=== PATIENT | female | born 1935 | race Caucasian/White ===

== ENCOUNTER → 2017-06-15 | Outpatient (CLI) | payer MEDICARE, OTHER ==
--- NOTE | 2017-06-15 13:24 | RADIOLOGY REPORT (SQ) ---
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 TECHNIQUE: Sagittal and Axial imaging includes T1, T2, STIR and gradient echo sequences. Coronal T2/ HASTE imaging. LIMITATIONS: None. FINDINGS: VISUALIZED UPPER ABDOMEN: Limited evaluation. No acute or suspicious findings suggested. SEGMENTATION: No transitional anatomy. The lowest well-developed disc space is labeled L5-S1. ALIGNMENT: 25% anterolisthesis of L4 over L5, related to spondylolysis. VERTEBRAE: Intact. BONE MARROW: Hemangioma in the T12 and L1 vertebral bodies. DISC SIGNAL: Diffuse decreased T2 weighted intervertebral disc signal. Multilevel disc space loss of height. POSTERIOR ELEMENTS: Bilateral spondylolysis at L4 HARDWARE: None in the spine. CORD AND CONUS: Normal in size and signal intensity. Conus at the L1 level. SOFT TISSUES: No aortic aneurysm seen. No bulky retroperitoneal adenopathy or mass. No paraspinal mas s or fluid. T9-10: At the upper edge of the field of view. Broad diffuse disc bulge is present. Bilateral face t hypertrophy. No central stenosis. Foramina incompletely included in the field of view but there i s at least moderate left T9-10 foraminal stenosis. T10-11: At the upper edge of the field of view. Broad diffuse posterior disc bulge and bony spurrin g, bulky bilateral facet hypertrophy is present with borderline central canal, mild right, and modera te to high-grade left T10-11 foraminal narrowing. T11-12: Minimal posterior disc bulging is present. Bilateral facet hypertrophy left greater than ri ght. Mild right, moderate left foraminal narrowing. No central stenosis. T12-L1: Broad diffuse posterior disc bulging, mild bilateral facet and ligament hypertrophy. Border line central canal narrowing. No right foraminal narrowing. Mild left foraminal narrowing. L1-L2: Mild diffuse posterior disc bulging, moderate bilateral facet hypertrophy. Borderline central canal narrowing. Moderate bilateral foraminal narrowing. L2-L3: Mild diffuse posterior disc bulging, bulky bilateral facet hypertrophy. Mild central canal na rrowing. Mild bilateral inferior foraminal narrowing. L3-L4: Mild to moderate central canal stenosis with flattening of the thecal sac into a triangular sh ape results from broad diffuse posterior disc bulge and bony spurring and very bulky bilateral facet hypertrophy. This is best shown on axial T2 series 8, image 23. There is moderate bilateral foramin al narrowing. L4-L5: Severe central canal stenosis is present at L4-5, as a result of broad diffuse posterior disc bulging, 25% anterolisthesis of L4 over L5, and very bulky bilateral facet hypertrophy. There is com plete effacement of the CSF along the lumbar nerve roots best shown on axial T2 series 8, image 28 an d sagittal image 9. Moderate right, mild left foraminal narrowing is present. L5-S1: Broad diffuse posterior disc bulging is present with bulky bilateral facet and ligament hypert rophy. No central stenosis. Mild right and left foraminal narrowing. SACRUM: Visualized upper sacrum intact. OTHER: No other significant findings. IMPRESSION: Severe central canal stenosis at L4-5 TECHNICAL DOCUMENTATION: JOB ID: [id number] [employer] All Rights Reserved
== END ==
LOC: RAD 10:25
PROVIDERS: ATTEND Internal Medicine
DX: M47.816 Spondylosis without myelopathy or radiculopathy, lumbar region (principal); M54.5 Low back pain; M54.16 Radiculopathy, lumbar region
CPT/HCPCS: 72148

== ENCOUNTER → 2018-06-24 | Outpatient (CLI) | payer MEDICARE, OTHER ==
--- NOTE | 2018-06-24 14:32 | RADIOLOGY REPORT (SQ) ---
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 TECHNIQUE: CT scan of the chest performed using helical scanning technique with dynamic intravenous contrast injection. Images reviewed with lung, soft tissue and bone windows. Reconstructed coronal and sagittal MPR and MIP images reviewed. All images stored on PACS. All CT scanners at this facility use dose modulation, iterative reconstruction, and/or weight based d osing when appropriate to reduce radiation dose to as low as reasonably achievable (ALARA). [facility]: Dose Right [facility]: CareDose [facility]: Dose Right [facility]: Teradose 4D [facility]: KOEZY CONTRAST TYPE AND DOSE: contrast/concentration: Isovue 350.00 mg/ml; Total Contrast Delivered: 80.0 ml; Total Saline Delivered: 55.0 ml RENAL FUNCTION: Creatinine 0.6 RADIATION DOSE: CT Rad equipment meets quality standard of care and radiation dose reduction techniq ues were employed. CTDIvol: 8.3 mGy. DLP: 320 mGy-cm. . LIMITATIONS: None. FINDINGS: LUNGS AND PLEURA: No opacities, nodules, masses. No pneumothorax. No effusions. HILAR AND MEDIASTINAL STRUCTURES: Mediastinal adenopathy is present as follows: Prevascular 1.2 x 0.7 cm lymph node AP window 1.6 x 0.9 cm lymph node Right hilar 1.8 x 1.4 cm lymph node Precarinal 1.9 x 1.4 cm lymph node HEART AND VASCULAR STRUCTURES: No aneurysm or dissection. No central pulmonary emboli. No pericardi al effusion. HARDWARE: None in the chest. UPPER ABDOMEN: Small hiatal hernia. Otherwise unremarkable THYROID AND OTHER SOFT TISSUES: No masses. No adenopathy. BONES: No focal findings to explain history of anterior rib pain. No acute rib or sternal fracture i s identified. OTHER: No other significant finding. IMPRESSION: No CT findings to explain history of anterior chest wall pain. Mediastinal adenopathy as above TECHNICAL DOCUMENTATION: JOB ID: [id number] Quality ID # [id number]: Final reports with documentation of one or more dose reduction techniques (e.g., Au tomated exposure control, adjustment of the mA and/or kV according to patient size, use of iterative reconstruction technique) 2010 [employer]- All Rights Reserved Reading location - IP/workstation name: [email or web address]
== END ==
LOC: RAD 12:42
PROVIDERS: ATTEND Physician Assistant
DX: M94.0 Chondrocostal junction syndrome [Tietze] (principal); R07.82 Intercostal pain
CPT/HCPCS: 71260; 82565

== ENCOUNTER → 2018-10-15 | Outpatient (CLI) | payer MEDICARE, OTHER ==
--- NOTE | 2018-10-15 15:07 | RADIOLOGY REPORT (SQ) ---
EXAM DESCRIPTION: CT CHEST WITH COMPLETED DATE/TIME: 10/15/2018 2:40 pm REASON FOR STUDY: MEDIASTINAL ADENOPATHY R59.0 LOCALIZED ENLARGED LYMPH NODES COMPARISON: 06/24/2018 TECHNIQUE: CT scan of the chest performed using helical scanning technique with dynamic intravenous contrast injection. Images reviewed with lung, soft tissue and bone windows. Reconstructed coronal and sagittal MPR and MIP images reviewed. All images stored on PACS. All CT scanners at this facility use dose modulation, iterative reconstruction, and/or weight based d osing when appropriate to reduce radiation dose to as low as reasonably achievable (ALARA). [facility]: Dose Right [facility]: CareDose [facility]: Dose Right [facility]: Teradose 4D [facility]: [employer] CONTRAST TYPE AND DOSE: contrast/concentration: Isovue 350.00 mg/ml; Total Contrast Delivered: 80.0 ml; Total Saline Delivered: 55.0 ml RENAL FUNCTION: Creatinine 0.8 RADIATION DOSE: CT Rad equipment meets quality standard of care and radiation dose reduction techniq ues were employed. CTDIvol: 11.4 mGy. DLP: 433 mGy-cm. . LIMITATIONS: None. FINDINGS: LUNGS AND PLEURA: No opacities, nodules, masses. No pneumothorax. No effusions. HILAR AND MEDIASTINAL STRUCTURES: Previously described lymph nodes have all decreased in size. All l ess than 1 cm in short axis. HEART AND VASCULAR STRUCTURES: No aneurysm or dissection. No central pulmonary emboli. No pericardi al effusion. HARDWARE: None in the chest. UPPER ABDOMEN: No significant findings. Limited exam. THYROID AND OTHER SOFT TISSUES: No masses. No adenopathy. BONES: No significant finding. OTHER: No other significant finding. IMPRESSION: Resolved adenopathy. No acute or significant findings. TECHNICAL DOCUMENTATION: JOB ID: [id number] Quality ID # [id number]: Final reports with documentation of one or more dose reduction techniques (e.g., Au tomated exposure control, adjustment of the mA and/or kV according to patient size, use of iterative reconstruction technique) 2010 [employer]- All Rights Reserved Reading location - IP/workstation name: [email or web address]-
== END ==
LOC: RAD 14:08
PROVIDERS: ATTEND Internal Medicine
DX: R59.0 Localized enlarged lymph nodes (principal)
CPT/HCPCS: 71260; 82565